=== PATIENT | female | born 1995 | race Caucasian/White ===

== ENCOUNTER 2019-02-05 13:29 | Inpatient (IN) | payer OTHER ==
[~2019-02-05] VITALS: Ht 157.5 cm; Wt 83.2 kg
[2019-02-05 13:39] VITALS: Ht 157.5 cm; Wt 83.2 kg
[2019-02-05] MEDS ORDERED: LACTATED RINGER'S 1,000 ML IV SCH (13:40)
[2019-02-05] MEDS ORDERED: LIDOCAINE 1% (MPF) 30 ML INJ INJ PRN (14:00)
[2019-02-05] MEDS ORDERED: OXYTOCIN 30 UNITS/LR 500 ML IV SCH ×2 (14:00)
[2019-02-05] MEDS ORDERED: OXYTOCIN 30 UNITS/LR 500 ML IV PRN (14:00)
[2019-02-05] MEDS ORDERED: IBUPROFEN 600 MG TAB PO PRN (14:00)
[2019-02-05] MEDS ORDERED: MISOPROSTOL 200 MCG TAB PR PRN (14:00)
[2019-02-05] MEDS ORDERED: BUTORPHANOL 2 MG INJ IV PRN ×2 (14:00)
[2019-02-05] MEDS ORDERED: CARBOPROST 250 MCG INJ IM PRN (14:00)
[2019-02-05] MEDS ORDERED: METHYLERGONOVINE 0.2 MG INJ IM PRN (14:00)
[2019-02-05] MEDS ORDERED: LACTATED RINGER'S 500 ML IV SCH (16:30)
[2019-02-05] MEDS: LACTATED RINGER'S 1,000 ML IV PRN (20:38)
[2019-02-06] MEDS: LACTATED RINGER'S 1,000 ML IV PRN (04:36)
[2019-02-06] MEDS ORDERED: LACTATED RINGER'S 1,000 ML IV PRN (06:00)
--- NOTE | 2019-02-06 19:30 | PREOPHP ---
DATE OF ADMISSION: 02/05/2019 HISTORY OF PRESENT ILLNESS: This is a 23-year-old lady, 1, para 0, EDC 02/12/2019 at 39 week s , admitted to labor and delivery area for IV hydration and observation. Her GONZALES on admissi on was 6. She had care at Dr. Ocampo's office and the care was uneventful. PAST PERSONAL HISTORY: No history of diabetes, TB, asthma. ALLERGIES: NO ALLERGIES. SOCIAL HISTORY: The patient does not smoke. She does not drink. MEDICATIONS: She does not take any drugs except her: 1. Iron. 2. Vitamins. GYNECOLOGIC HISTORY: She had menarche at the age of 12, every 28 days interval, 3 to 4 days duration and moderate in amount. FAMILY HISTORY: Noncontributory. OBSTETRICAL HISTORY: She is 1. REVIEW OF SYSTEMS: CARDIOVASCULAR: No chest pains. RESPIRATORY: No cough. GASTROINTESTINAL: No diarrhea, no vomiting. GENITOURINARY: No dysuria. PHYSICAL EXAMINATION: GENERAL: Reveals a conscious, coherent lady and in no acute distress. VITAL SIGNS: Her blood pressure 120/70, pulse rate 80 per minute, respirations 16 per minute. BREASTS, HEART AND LUNGS: Within normal limits. ABDOMEN: Soft. Fundic height 37 cm. heart tones 140 per minute. PELVIC: Revealed the cervix to be closed, station floating in cephalic presentation with the bag of water intact. EXTREMITIES: No pedal edema. ADMITTING DIAGNOSIS: A 39 weeks' intrauterine . The patient had an OB ultrasound. The GONZALES was 6, so the plans were explained to the patient as to go for IV hydration and repeat GONZALES the following day after admission. That was plan and the patient ag nia to it. Dictated By: JONATHAN ANGEL MD NS/NTS Conf#: [id number] DID#: [id number] CC: DARLINE OCAMPO MD;*EndCC*
--- NOTE | 2019-02-06 19:44 | PN ---
DATE: 02/06/2019 SUBJECTIVE: The patient feels good. No contractions. No pain. OBJECTIVE: VITAL SIGNS: She is afebrile. Vital signs stable. ABDOMEN: Soft. No tenderness noted. PELVIC: Revealed the cervix to be closed, station floating. EXTREMITIES: No calf tenderness. ASSESSMENT: A 39 weeks' intrauterine . PLAN: The patient will have a repeat ultrasound today and depending upon the ultrasound, the plans w ill be explained to the patient. Dictated By: JONATHAN ANGEL MD NS/NTS Conf#: [id number] DID#: [id number] CC: DARLINE OCAMPO MD;*EndCC*
--- NOTE | 2019-02-06 20:12 | DS ---
DATE OF ADMISSION: 02/05/2019 DATE OF DISCHARGE: 02/06/2019 HISTORY OF PRESENT ILLNESS: See dictated history and physical. PHYSICAL EXAMINATION: See dictated history and physical. ADMITTING DIAGNOSIS: A 39 weeks' intrauterine . HOSPITAL COURSE: The patient had an OB ultrasound and the GONZALES was 6, so she was given IV hydration a nd then the following day after admission, we have repeat GONZALES around noontime and the GONZALES was 8.5. T he cervix was still closed and the station was floating, so the patient was discharged home. She was advised to have at antepartum testing in 3 days. The plans were explained to the patient and the ri sks, benefits and alternatives were discussed with her. She was given instructions. She was apprise counselor ed. She was instructed. She was discharged home in good and stable. FINAL DIAGNOSES: 1. A 39 weeks' intrauterine . 2. Borderline oligohydramnios. Dictated By: JONATHAN YANG/ELIZABETH Conf#: [id number] DID#: [id number]
== END 2019-02-06 11:40 | disposition home or self-care (01) | DRG 833 ==
LOC: L-D 13:29 → EDSTATUS 02-12 13:26
PROVIDERS: ADMIT Obstetrics & Gynecology; ATTEND Obstetrics & Gynecology
DX: O41.03X0 Oligohydramnios, third trimester, not applicable or unspecified (principal); Z3A.39 39 weeks gestation of pregnancy
CPT/HCPCS: 76815; 76818; 85025; 85610; 85730; 86592; 86850; 86900; 86901; 87340; J7120

== ENCOUNTER 2019-02-09 10:54 | Inpatient (IN) | payer OTHER ==
[~2019-02-09] VITALS: Ht 157.5 cm; Wt 82.7 kg
[2019-02-09 11:21] VITALS: Ht 157.5 cm; Wt 82.7 kg
[2019-02-09] MEDS ORDERED: PNV11TAB PO (11:21)
[2019-02-09 11:22] VITALS: BP 107/60; PULSE 79; RESP 18
[2019-02-09] MEDS ORDERED: IBUPROFEN 600 MG TAB PO PRN (12:30)
[2019-02-09] MEDS ORDERED: METHYLERGONOVINE 0.2 MG INJ IM PRN (12:30)
[2019-02-09] MEDS ORDERED: OXYTOCIN 30 UNITS/LR 500 ML IV SCH ×2 (12:30)
[2019-02-09] MEDS ORDERED: MISOPROSTOL 50 MCG CAPSULE PO PRN (12:30)
[2019-02-09] MEDS ORDERED: BUTORPHANOL 2 MG INJ IV PRN (12:30)
[2019-02-09] MEDS ORDERED: OXYTOCIN 30 UNITS/LR 500 ML IV PRN (12:30)
[2019-02-09] MEDS ORDERED: MISOPROSTOL 200 MCG TAB PR PRN (12:30)
[2019-02-09] MEDS ORDERED: CARBOPROST 250 MCG INJ IM PRN (12:30)
[2019-02-09] MEDS ORDERED: OXYCODONE/ASPIRIN (4.88/325) TAB PO PRN (12:30)
[2019-02-09] MEDS ORDERED: LIDOCAINE 1% (MPF) 30 ML INJ INJ PRN (12:30)
[2019-02-09] MEDS ORDERED: MISOPROSTOL 50 MCG CAPSULE PO ONE (13:00)
[2019-02-09] MEDS: LACTATED RINGER'S 1,000 ML IV SCH ×2 (13:28→19:51)
[2019-02-09] MEDS: MISOPROSTOL 50 MCG CAPSULE PO SCH ×2 (17:56→22:00)
[2019-02-09] MEDS ORDERED: MISOPROSTOL 50 MCG CAPSULE PO SCH (18:00)
[2019-02-10] MEDS: MISOPROSTOL 50 MCG CAPSULE PO SCH ×2 (02:15→20:30)
[2019-02-10] MEDS: LACTATED RINGER'S 1,000 ML IV SCH ×4 (05:48→15:22)
[2019-02-10] MEDS ORDERED: OXYTOCIN 30 UNITS/LR 500 ML IV SCH (06:30)
[2019-02-10] MEDS ORDERED: FENTAnyl 2MCG/ML-ROPIV 0.2% 100 ML ONE (12:52)
--- NOTE | 2019-02-10 14:04 | PREAC ---
Date/Time of Note Date/Time of Note DATE: 02/10/19 TIME: 14:02 Anesthesia Eval and Record Evaluation Time Pre-Procedure Interview DATE: 02/10/19 TIME: 12:40 Age 23 Sex female NPO: 8 hrs Preoperative diagnosis iup @ 39 wks., , labor Planned procedure eva Past Medical History Past Medical History: Includes : : (1), Para: (0), Gestational age: (39 wks.) Surgery & Anesthesia Issues No known issue Meds Anticoagulation: Yes Beta Page within 24 hr: Yes Reason Beta Page not given: Pt. not on B-Page Reported Medications [id number] ( 19) 1 Each Tablet, 1 TAB PO DAILY, TAB 02/09/19 Current Medications Lactated Ringer's 1,000 ml @ 125 mls/hr Q8H IV Last administered on 02/10/19at 12:37; Admin Dose 125 MLS/HR; Start 02/09/19 at 12:27 Butorphanol Tartrate (Stadol) 2 mg Q2H PRN IV .PAIN SCALE 6-10; Start 02/09/19 at 12:30 Lidocaine (Xylocaine 1% (Mpf)) 30 ml ONCE PRN INJ .EPISIOTOMY; Start 02/09/19 at 12:30 Oxytocin/Lactated Ringer's 500 ml @ 500 mls/hr ONCE POST IV ; Start 02/09/19 at 12:30 Oxytocin/Lactated Ringer's 500 ml @ 125 mls/hr POST IV ; Start 02/09/19 at 12:30 Ibuprofen (Motrin) 600 mg ONCE PRN PO .PAIN 1-5; Start 02/09/19 at 12:30 Oxycodone/Aspirin (Percodan) 2 tab ONCE PRN PO .PAIN 6-10; Start 02/09/19 at 12:30 Oxytocin/Lactated Ringer's 500 ml @ 0 mls/hr ONCE PRN IV .VAGINAL BLEEDING; Start 02/09/19 at 12:30 Methylergonovine Maleate (Methergine) 0.2 mg ONCE PRN IM .VAGINAL BLEEDING; Start 02/09/19 at 12:30 Carboprost Tromethamine (Hemabate) 250 mcg ONCE PRN IM .VAGINAL BLEEDING; Start 02/09/19 at 12:30 Misoprostol (Cytotec) 1,000 mcg ONCE PRN [place] .VAGINAL BLEEDING; Start 02/09/19 at 12:30 Oxytocin/Lactated Ringer's 500 ml @ 0 mls/hr FOR INDUCTION IV Last administered on 02/10/19at 06:33; Admin Dose 2 MLS/HR; Start 02/10/19 at 06:30 Meds reviewed: Yes Allergies Coded Allergies: No Known Allergy (Unverified , 02/05/19) Allergies Reviewed: Yes Labs/Studies Labs Reviewed: Reviewed by anesthesiologist Result Diagram: 02/09/19 1320 test: Positive Studies: ECG (n/a), CXR (n/a) Pre-procedure Exam Last vitals Vital Signs Date Temp Pulse Resp B/P (MAP) Pulse Ox O2 O2 Flow FiO2 Time Delivery Rate 02/09/19 98.2 79 18 107/60 11:22 (76) Airway: Adequate mouth opening, Adequate thyromental dist Mallampati: Mallampati II Teeth: Normal Lung: Normal Heart: Normal ASA Physical Status ASA physical status: 2 Emergency: E Planned Anesthetic Neuraxial: Epidural Planned Pain Management Epidural, Parenteral pain med, Local by surgeon Pre-operative Attestations Prior to commencing anesthesia and surgery, the patient was re-evaluated, there was verification of: *The patient's identity *The results of appropriate recent lab work and preoperative vital signs *The above evaluation not changing prior to induction *Anesthetic plan, risk benefits, alternative and complications discussed with patient/family; questions answered; patient/family understands, accepts and wishes to proceed. Silk Worker used BHAVNA URIAS MD Feb 10, 2019 14:04
[2019-02-10] MEDS ORDERED: FENTAnyl 2MCG/ML-ROPIV 0.2% 100 ML BAG EPI SCH (14:30)
[2019-02-10] MEDS ORDERED: NALOXONE (0.4 MG/ML) INJ IV PRN (14:30)
[2019-02-10] MEDS ORDERED: ONDANSETRON 4 MG INJ IV PRN (14:30)
[2019-02-10] MEDS ORDERED: NALBUPHINE HCL (10 MG/1 ML) INJ IV PRN (14:30)
[2019-02-10] MEDS ORDERED: MINERAL OIL LIGHT 10 ML VIAL TOP ONE (20:00)
--- NOTE | 2019-02-10 20:57 | LDN ---
Date/Time of Note Date/Time of Note DATE: 02/10/19 TIME: 20:53 Delivery Summary of normal male with short 2nd stage of labor Weeks of Gestation 39w5d Placenta Delivered: Spontaneously Meconium: none Episiotomy: No Perineal laceration: 2 Laceration repair: 00ch gut Anesthesia type: Epidural Estimated blood loss: 120 Sponge & Needle done & correct: Yes All needle counts correct: Yes Any foreign bodies felt in the: No Delivery Information Sex Infant Sex: male Apgars 1 Minute: 8 5 Minute: 9 Suctioning Nose & mouth suctioned at luisa: Yes Delee suction performed: Yes Umbilical Cord Umbilical cord with: 3 Vessels Cord presentations: no nuchal cord Cord Blood was obtained: Yes Mother & Baby Disposition Disposition Mom & Baby to Maternity; Good: Yes Mom transferred to: Other Baby to NICU: No () LAUREN TRIANA MD Feb 10, 2019 20:57
--- NOTE | 2019-02-10 21:16 | HP ---
Date/Time of Note Date/Time of Note DATE: 02/10/19 TIME: 20:58 OB - History Hx of Present Free Text/Dictation 23 y.o primigravida here for IOL for oligohydramnios at 39w5d. Her visit was initiated and had unevenful course, Initial VE c/long /-3 GBS status neg EFW 3450gm GONZALES 5.7 admitted for IOL by using cytotec Chief Complaint: IOL Estimated Due Date: Feb 12, 2019 : 1 Para: 0 Spontaneous : 0 Therapeutic : 0 Care: Good Care Ultrasounds: Normal mid trimester US Obstetrical Complications: None Medical Complications: None, Musculoskeletal Past Family/Social History * Past Medical, Surgical, Family and Obstetric Histories reviewed from chart. Blood Type: B+ Rubella: immune RPR/VDRL: Negative GBS Status: Negative HBsAG: Negative OB Admission Exam Vital Signs Vital Signs Vital Signs Date Temp Pulse Resp B/P (MAP) Pulse Ox O2 O2 Flow FiO2 Time Delivery Rate 02/09/19 98.2 79 18 107/60 11:22 (76) Physical Exam HEENT: WNL Heart: Rhythm Normal Lungs: Clear, Equal Abdomen: WNL Extremities: Normal Reflexes: Normal Cervical Dilatation: None Effacement: 0% Station: -3 Membranes: Intact Amniotic Fluid: Unevaluable Heart Rate: 120's Accelerations: Accelerations Present Decelerations: No Decelerations Varibility: Moderate Contractions on Admission: >10 Minutes Apart Intensity: Mild Last 72 hours Lab Results CBC & BMP 02/09/19 13:20 OB Assessment/Plan Reason for admission: induction of labor Other Assessment: IUP 39w5d oligohydramnios Plan: Induction Induction Method: per Misoprostol Protocol LAUREN TRIANA MD Feb 10, 2019 21:13
[2019-02-10 22:00] VITALS: BP 116/76; PULSE 80; RESP 20
[2019-02-10] MEDS ORDERED: CARBOPROST 250 MCG INJ IM PRN (22:30)
[2019-02-10] MEDS ORDERED: BENZOCAINE 20% 56 ML SPRAY TOP PRN (22:30)
[2019-02-10] MEDS ORDERED: ZOLPIDEM 5 MG TAB PO PRN (22:30)
[2019-02-10] MEDS ORDERED: OXYTOCIN 30 UNITS/LR 500 ML IV PRN (22:30)
[2019-02-10] MEDS ORDERED: LANOLIN HPA 1 PKT TOP PRN (22:30)
[2019-02-10] MEDS ORDERED: METHYLERGONOVINE 0.2 MG INJ IM PRN (22:30)
[2019-02-10] MEDS ORDERED: OXYCODONE/ASPIRIN (4.88/325) TAB PO PRN (22:30)
[2019-02-10] MEDS ORDERED: MISOPROSTOL 200 MCG TAB PR PRN (22:30)
[2019-02-10] MEDS ORDERED: WITCH HAZEL/GLYCERIN PAD PR PRN (22:30)
[2019-02-10 23:00] VITALS: BP 110/75; PULSE 75; RESP 18
[2019-02-10] MEDS: IBUPROFEN 600 MG TAB PO SCH (23:13)
[2019-02-11] VITALS: BP 112/71; RESP 19
[2019-02-11] MEDS: LACTATED RINGER'S 1,000 ML IV SCH ×3 (01:43→17:30)
[2019-02-11 04:00] VITALS: BP 99/68; PULSE 83; RESP 19
[2019-02-11] MEDS: IBUPROFEN 600 MG TAB PO SCH ×4 (05:55→23:38)
--- NOTE | 2019-02-11 06:00 | PAC ---
Date/Time of Note Date/Time of Note DATE: 02/11/19 TIME: 06:00 Post-Anesthesia Notes Post-Anesthesia Note Last documented vital signs Vital Signs Date Temp Pulse Resp B/P (MAP) Pulse Ox O2 O2 Flow FiO2 Time Delivery Rate 02/11/19 98.1 83 19 99/68 (78) Room Air 04:00 Activity: WNL Respiratory function: WNL Cardiovascular function: WNL Mental status: Baseline Pain reasonably controlled: Yes Hydration appropriate: Yes Nausea/Vomiting absent: Yes BHAVNA URIAS MD Feb 11, 2019 06:00
[2019-02-11 08:00] VITALS: BP 97/54; PULSE 74; RESP 18
[2019-02-11] MEDS: SENNA/DOCUSATE NA (8.6MG/50MG) TAB PO SCH ×2 (09:28→21:36)
--- NOTE | 2019-02-11 09:34 | PREOPHP ---
DATE OF ADMISSION: 02/09/2019 HISTORY OF PRESENT ILLNESS: This is a 23-year-old lady, 1, her EDC 02/12/2019 at 39 and 4/7 weeks, admitted to labor and delivery area for induction. This patient is known to have borderline o ligohydramnios. She was in this hospital a few days ago. GONZALES on admission at that time was 5.5+ and the following day after hydration it became 8+. She came on 02/09/2019 for another repeat GONZALES and t he GONZALES was 5.2, so she was admitted for induction. PAST PERSONAL HISTORY: No history of TB, asthma. ALLERGIES: NO ALLERGIES. SOCIAL HISTORY: The patient does not smoke. She does not drink. She does not take any drugs except her iron and vitamins. GYNECOLOGIC HISTORY: She had menarche at the age of 12, every 28 days interval, 3 to 4 days duration , and moderate in amount. FAMILY HISTORY: Noncontributory. REVIEW OF SYSTEMS: CARDIOVASCULAR: No chest pains. RESPIRATORY: No cough. GASTROINTESTINAL: No diarrhea, no vomiting. GENITOURINARY: No dysuria. PHYSICAL EXAMINATION: GENERAL: Reveals a conscious, coherent lady, in no acute distress. VITAL SIGNS: Her blood pressure 120/80, pulse rate 80 per minute, respirations 16 per minute. BREASTS, HEART AND LUNGS: Within normal limits. ABDOMEN: Soft. No organomegaly. Fundic height 37 cm. heart tones 140 per minute. PELVIC: On admission done by nurse revealed the cervix to be closed and station -2 in cephalic prese ntation with the bag of water intact. EXTREMITIES: No pedal edema. ADMITTING DIAGNOSIS: A 39 and 4/7 weeks intrauterine in early labor. The plans of deliver y were explained to the patient as to go for vaginal delivery. The risks, benefits, and alternatives to vaginal delivery and was explained to the patient and to her partner and both understoo d everything totally. The risks of explained both of them wanted to go for vaginal deliver y, so the patient was started on Cytotec. The patient received 4 doses of Cytotec after the 4th dose , pelvic exam revealed the cervix to be 1 to 2 cm dilated and so she was started on Pitocin augmentat ion. At 2:20 p.m. I did evaluate the patient. She was 6 cm dilated and a scalp electrode and IUPC was inserted. She had a spontaneous ruptured bag of water about 1:30 p.m. 02/10/2019 and then t he estimated weight by ultrasound is 7 pounds, 3450 grams. So she was planned to be continued on Pitocin augmentation. She received labor epidural at 2:45 p.m. and the epidural did not seem to b e working. Also when the patient was 8 to 9 cm dilated I endorsed the patient to Dr. Campbell to deliver and the history was given to her. Dictated By: JONATHAN ANGEL MD NS/NTS Conf#: [id number] DID#: [id number] CC: DARLINE OCAMPO MD; JONATHAN ANGEL MD;*[facility]*
[2019-02-11 12:00] VITALS: BP 92/60; PULSE 58; RESP 19
[2019-02-11] MEDS ORDERED: MAGNESIUM HYDROXIDE 30ML CUP PO ONE (13:00)
[2019-02-11] MEDS ORDERED: BISACODYL 10 MG SUPP PR ONE (13:00)
[2019-02-11 16:00] VITALS: BP 105/55; PULSE 80; RESP 19
[2019-02-11 19:50] VITALS: BP 108/70; PULSE 87; RESP 17
--- NOTE | 2019-02-11 20:57 | PN ---
Date/Time of Note Date/Time of Note DATE: 02/11/19 TIME: 20:55 Assessment/Plan VTE Prophylaxis Risk score (from Ns)>0 risk: 1 SCD applied (from Ns): No SCD contraindicated: low risk/ambulating Pharmacological prophylaxis: NA/contraindicated Pharm contraindication: low risk/ambulating Lines/Catheters IV C[facility]ter Type ([facility] Peripheral IV Assessment/Plan Assessment/Plan POST DAY 1 CHRONIC IRON DEFICIENCY ANEMIA HOME TOMORROW RETURN TO CLINIC IN 2 WEEKS CONTINUE WITH VITAMINS OD AND FERROUS SULFATE PO TID DIET ADVISED COUNSELED INSTRUCTED CALL OFFICE IF THERE IS ANY PROBLEMS OR CONCERN Result Diagram: 02/11/19 0651 Results 24hrs Laboratory Tests Test 02/11/19 06:51 White Blood Count 17.9 #H Red Blood Count 3.37 #L Hemoglobin 10.3 #L Hematocrit 29.4 #L Mean Corpuscular Volume 87.2 Mean Corpuscular Hemoglobin 30.6 Mean Corpuscular Hemoglobin Concent 35.0 Red Cell Distribution Width 13.2 Platelet Count 143 Mean Platelet Volume 12.4 H Immature Granulocytes % 0.600 H Neutrophils % 82.5 H Lymphocytes % 11.3 L Monocytes % 5.3 Eosinophils % 0.1 Basophils % 0.2 Nucleated Red Blood Cells % 0.0 Immature Granulocytes # 0.110 H Neutrophils # 14.8 H Lymphocytes # 2.0 Monocytes # 1.0 H Eosinophils # 0.0 Basophils # 0.0 Nucleated Red Blood Cells # 0.0 Subjective 24 Hr Interval Summary Free Text/Dictation FEELS GOOD, GOOD URINE OUTPUT, GOOD BOWEL MOVEMENT Exam/Review of Systems Exam Vitals Vital Signs Date Temp Pulse Resp B/P (MAP) Pulse Ox O2 O2 Flow FiO2 Time Delivery Rate 02/11/19 98.3 87 17 108/70 Room Air 19:50 (83) Intake and Output 02/10/19 02/10/19 02/11/19 1515:00 23:00 07:00 IntakeIntake Total 1000 ml 1250 ml 990 ml OutputOutput Total 300 ml 1318 ml 1100 ml BalanceBalance 700 ml -68 ml -110 ml Exam VITAL SIGNS STABLE: YES AFEBRILE: YES BREAST NOT ENGORGED, NON-TENDER, NO APPRECIABLE MASS: YES LUNGS CLEAR, NO RALES, WHEEZES, RHONCHI: YES SINUS RHYTHM WITHOUT MURMUR: YES ABDOMEN: NON-TENDER FUNDUS: BELOW UMBILICUS BOWEL SOUNDS: PRESENT UTERUS: FIRM PERINEAL TEAR HEALING WELL LOCHIA: LIGHT DEEP TENDON REFLEXES: 0 EXTREMITIES: NO CALF TENDERNESS EDEMA SCALE: NONE Results Results 24hrs Laboratory Tests Test 02/11/19 06:51 White Blood Count 17.9 #H Red Blood Count 3.37 #L Hemoglobin 10.3 #L Hematocrit 29.4 #L Mean Corpuscular Volume 87.2 Mean Corpuscular Hemoglobin 30.6 Mean Corpuscular Hemoglobin Concent 35.0 Red Cell Distribution Width 13.2 Platelet Count 143 Mean Platelet Volume 12.4 H Immature Granulocytes % 0.600 H Neutrophils % 82.5 H Lymphocytes % 11.3 L Monocytes % 5.3 Eosinophils % 0.1 Basophils % 0.2 Nucleated Red Blood Cells % 0.0 Immature Granulocytes # 0.110 H Neutrophils # 14.8 H Lymphocytes # 2.0 Monocytes # 1.0 H Eosinophils # 0.0 Basophils # 0.0 Nucleated Red Blood Cells # 0.0 Medications Medication Current Medications Ibuprofen (Motrin) 600 mg Q6 PO Last administered on 02/11/19at 17:23; Admin Dose 600 MG; Start 02/11/19 at 00:00 Oxycodone/Aspirin (Percodan) 1 tab Q3H PRN PO .PAIN 1-5; Start 02/10/19 at 22:30 Oxycodone/Aspirin (Percodan) 2 tab Q3H PRN PO .PAIN 6-10; Start 02/10/19 at 22:30 Zolpidem Tartrate (Ambien) 5 mg QHS PRN PO .INSOMNIA; Start 02/10/19 at 22:30 Senna/Docusate Sodium (Senokot-S) 1 tab BID PO Last administered on 02/11/19at 09:28; Admin Dose 1 TAB; Start 02/11/19 at 09:00 Witch Bárbara/ Glycerin (Tucks Pads) 1 pad BEDSIDE MEDICATION PRN AL .HEMORRHOID/EPISIOTOMY PAIN Last administered on 02/10/19at 23:12; Admin Dose 1 PAD; Start 02/10/19 at 22:30 Benzocaine (Dermoplast [place]) 1 spray BEDSIDE MEDICATION PRN TOP .HEMMORHOID/EPISIOTOMY PAIN Last administered on 02/10/19at 23:12; Admin Dose 1 SPRAY; Start 02/10/19 at 22:30 Lanolin (Lanolin Hpa) 1 applic BEDSIDE MEDICATION PRN TOP .NIPPLES Last administered on 02/10/19at 23:15; Admin Dose 1 APPLIC; Start 02/10/19 at 22:30 Diphtheria/ Tetanus/Acell Pertussis (Adacel) 0.5 ml ONCE ONCE IM* ; Start 02/12/19 at 09:00; Stop 02/12/19 at 09:01 Oxytocin/Lactated Ringer's 500 ml @ 0 mls/hr ONCE PRN IV .VAGINAL BLEEDING; Start 02/10/19 at 22:30 Methylergonovine Maleate (Methergine) 0.2 mg ONCE PRN IM .VAGINAL BLEEDING; Start 02/10/19 at 22:30 Carboprost Tromethamine (Hemabate) 250 mcg ONCE PRN IM .VAGINAL BLEEDING; Start 02/10/19 at 22:30 Misoprostol (Cytotec) 1,000 mcg ONCE PRN [place] .VAGINAL BLEEDING; Start 02/10/19 at 22:30 JONATHAN ANGEL MD Feb 11, 2019 20:57
[2019-02-11] MEDS: OXYCODONE/ASPIRIN (4.88/325) TAB PO PRN (21:42)
[2019-02-12 03:29] VITALS: BP 96/55; RESP 17
[2019-02-12] MEDS: OXYCODONE/ASPIRIN (4.88/325) TAB PO PRN ×2 (04:31→10:22)
[2019-02-12] MEDS: IBUPROFEN 600 MG TAB PO SCH ×2 (05:38→12:04)
[2019-02-12 08:00] VITALS: BP 106/65; PULSE 77; RESP 18
[2019-02-12] MEDS ORDERED: DIPHTH/TET/ACEL PERTUSS (ADULT) 0.5 ML VIAL IM* ONE (09:00)
[2019-02-12] MEDS: SENNA/DOCUSATE NA (8.6MG/50MG) TAB PO SCH (09:40)
--- NOTE | 2019-02-13 16:11 | DELSUM ---
Delivery Summary A-C Datetime Report Generated by CPN: 02/13/2019 16:11 DELIVERY PERSONNEL Pulp Press Tender: Mann, Clarita MATERNAL INFORMATION Delivery Anesthesia: Epidural Medications in Delivery: 30 UNITS PITOCIN Delivery QBL (ml): 122 Placenta Cultured: No Maternal Complications: None LABOR SUMMARY EDC: 02/12/2019 00:00 No. Babies in Womb: 1 Attempted: No Labor Anesthesia: Epidural LABOR INFORMATION Reason for Induction: Oligohydramnios Onset of Labor: 02/09/2019 13:02 Complete Dilatation: 02/10/2019 19:57 Cervical Ripening Agents: Cytotec @ 50 mcg Group B Beta Strep: Negative Antibiotics # of Doses: 0 Steroids Given: None Reason Steroids Not Administered: Not Applicable MEMBRANES Membranes Rupture Method: Spontaneous Rupture of Membranes: 02/10/2019 13:05 Length of Rupture (hr): 7.15 Amniotic Fluid Color: Clear Amniotic Fluid Amount: Small Amniotic Fluid Odor: Normal STAGES OF LABOR Stage 1 hr: 30 Stage 1 min: 55 Stage 2 hr: 0 Stage 2 min: 17 Stage 3 hr: 0 Stage 3 min: 3 Total Time in Labor hr: 31 Total Time in Labor min: 15 VAGINAL DELIVERY Episiotomy: None Laceration Extension: Second Degree Laceration Type: Perineal Laceration Repair: Yes Initial Vag Sponge Count: 10 Final Vag Sponge Count: 10 Initial Vag Sharps Count: 2 Final Vag Sharps Count: 2 Sponge Count Correct: Yes; Vaginal Sweep Performed Sharps Count Correct: Yes BABY A INFORMATION Delivery Date/Time: 02/10/2019 20:14 Method of Delivery: Vaginal Born in Route : No : N/A Forceps: N/A Vacuum Extraction: N/A Shoulder Dystocia : N/A SHOULDER DYSTOCIA BABY A Infant Delivery Date/Time: 02/10/2019 20:14 PRESENTATION/POSITION BABY A Presentation: Cephalic Cephalic Presentation: Vertex Breech Presentation: N/A PLACENTA INFORMATION BABY A Placenta Delivery Time : 02/10/2019 20:17 Placenta Method of Delivery: Expressed Placenta Status: Delivered SCORES BABY A Heart Rate 1 min: >100 bpm Resp Effort 1 min: Good Cry Reflex Irritability 1 min: Cough/Sneeze/Pulls Away Muscle Tone 1 min: Active Motion Color 1 min: Body [place], Extremit Blue Resuscitation Effort 1 min: Tactile Stimulation SCORE 1 MIN: 9 Heart Rate 5 min: >100 bpm Resp Effort 5 min: Good Cry Reflex Irritability 5 min: Cough/Sneeze/Pulls Away Muscle Tone 5 min: Active Motion Color 5 min: Body [place], Extremit Blue Resuscitation Effort 5 min: Tactile Stimulation SCORE 5 MIN: 9 INFANT INFORMATION BABY A Gestational Age at Delivery: 39.5 Gestational Status: Full Term- 39- 40.6 Weeks Outcome : Liveborn, with signs of life Infant Condition : Stable Infant Sex: Male IDENTIFICATION/MEDS BABY A ID Band Number: [id number] ID Band Location: Right Leg; Left Arm Sensor Applied: Yes Sensor Number: [id number] Sensor Location : Cord Clamp Vitamin K Given : Not Given Erythromycin Given: Not Given WEIGHT/LENGTH BABY A Birthweight (gm): 3150 Infant Weight (lb): 6 Weight (oz): 15 Infant Length (in): 19.50 Infant Length (cm): 49.53 CORD INFORMATION BABY A No. Cord Vessels: 3 Nuchal Cord : N/A Cord Blood Taken: Yes Suction: Mouth; Nose ASSESSMENT BABY A Complications: Multiple Late Decels; Multiple Variable Decels; Oligohydramnios Physical Findings at Delivery: Within Normal Limits Infant Respirations: Appears Normal Calculating Machine Mechanic/ALS Called : No Care By: Jaison LORD Transferred To: Remains with Mother
== END 2019-02-12 15:20 | disposition home or self-care (01) | DRG 807 ==
LOC: OBT 10:54 → L-D 10:55 → OBT 12:23 → PP1 02-10 22:01
PROVIDERS: ADMIT Obstetrics & Gynecology; ATTEND Obstetrics & Gynecology
PROC: 10E0XZZ Delivery of Products of Conception, External Approach (ICD-10-PCS; principal; 2019-02-10)
PROC: 0HQ9XZZ Repair Perineum Skin, External Approach (ICD-10-PCS; 2019-02-10)
PROC: 3E033VJ Introduction of Other Hormone into Peripheral Vein, Percutaneous Approach (ICD-10-PCS; 2019-02-10)
PROC: 3E0P7VZ Introduction of Hormone into Female Reproductive, Via Natural or Artificial Opening (ICD-10-PCS; 2019-02-10)
DX: O41.03X0 Oligohydramnios, third trimester, not applicable or unspecified (principal); Z37.0 Single live birth; Z3A.39 39 weeks gestation of pregnancy; O70.9 Perineal laceration during delivery, unspecified; O99.013 Anemia complicating pregnancy, third trimester
CPT/HCPCS: 62322; 76815; 76818; 85025; 85610; 85730; 86592; 86850; 86900; 86901; 99464; G0463; J2590; J3010; J7120

== ENCOUNTER 2019-02-14 12:59 | Emergency (ER) | payer OTHER ==
[~2019-02-14] VITALS: Ht 160 cm; Wt 79.1 kg
[~2019-02-14 12:59] MED LIST: PNV11TAB PO
[2019-02-14 13:14] VITALS: Ht 160 cm; Wt 79.1 kg
[2019-02-14] MEDS ORDERED: ACETAMINOPHEN 500 MG TAB PO STA (13:38)
[2019-02-14] MEDS ORDERED: LIDOCAINE 1% (MPF) 5 ML VIAL IM ONE (14:00)
[2019-02-14] MEDS ORDERED: CEFTRIAXONE 1 GM INJ IM ONE (14:00)
[2019-02-14] MEDS ORDERED: CLIN300C10 PO (14:23)
[2019-02-14] MEDS ORDERED: ACET325T33 PO (14:23)
--- NOTE | 2019-02-14 15:00 | ERD ---
ER Documentation Chief Complaint Chief Complaint abscess tailbone HPI History of Present Illness: 23-year-old female who denies a past medical history coming in today with complaint of abscess to her tailbone that she noticed approximately 5 days ago. Patient reports giving on 02/12/2029. Patient reports noting a draining abscess to buttock crease yesterday. Patient denies any other associated symptoms. At home pharmacological/nonpharmacological treatment for symptoms: Denies Denies social concerns; Denies recent foreign travel ROS All systems reviewed and are negative except as per history of present illness. Medications Home Meds Active Scripts Acetaminophen* (Tylenol*) 325 Mg Tablet, 2 TAB PO Q6 PRN for PAIN AND OR ELEVATED TEMP, #20 TAB Prov:MICHEAL STORY NP 02/14/19 Clindamycin Hcl* (Clindamycin Hcl*) 300 Mg Capsule, 300 MG PO TID for ABSCESS for 10 Days, CAP Prov:MICHEAL STORY V PATIENT CENTERED CARE SPECIALIST 02/14/19 Reported Medications [id number] ( 19) 1 Each Tablet, 1 TAB PO DAILY, TAB 02/09/19 Allergies Allergies: Coded Allergies: No Known Allergy (Unverified , 02/05/19) PMhx/Soc Medical and Surgical Hx: pt denies Medical Hx, pt denies Surgical Hx Hx Alcohol Use: No Hx Substance Use: No Hx Tobacco Use: No Smoking Status: Never smoker FmHx Family History: diabetes Physical Exam Vitals Vital Signs Date Temp Pulse Resp B/P (MAP) Pulse Ox O2 O2 Flow FiO2 Time Delivery Rate 02/14/19 99.8 104 18 127/92 96 13:14 (104) Physical Exam Const: No acute distress, afebrile Head: Atraumatic Eyes: Normal Conjunctiva ENT: Normal External Ears, Nose and Mouth. Neck: Full range of motion. No meningismus. Resp: Clear to auscultation bilaterally Cardio: Regular rate and rhythm, no murmurs Abd: Soft, non tender, non distended. No guarding, no masses, no rigidity Skin: No petechiae or rashes; abscess noted to gluteal fold, 1.5 cm of induration, no fluctuance, no warmth, no erythema, mild purulent drainage noted Back: No midline or flank tenderness Ext: No cyanosis, or edema Neur: Awake and alert x3, speaking in clear sentences, no focal deficits or facial asymmetry Psych: Normal Mood and Affect Results 24 hrs Current Medications Medications Dose Sig/Catracho Start Time Status Last (Trade) Ordered Route PRN Stop Time Admin Dose Reason Admin 1,000 mg ONCE STAT 02/14/19 DC 02/14/19 Acetaminophen PO 13:38 02/14/19 13:57 (Tylenol 13:41 Tab) Ceftriaxone 1 gm ONCE ONCE 02/14/19 DC 02/14/19 Sodium IM 14:00 02/14/19 13:57 (Rocephin) 14:01 Lidocaine 2.1 ml ONCE ONCE 02/14/19 DC 02/14/19 (Xylocaine IM 14:00 02/14/19 13:57 1% (Mpf)) 14:01 Procedures/MDM ED COURSE: ED course includes a thorough examination and history. The patient was stable throughout ED course. I kept the patient and/or family informed of laboratory and diagnostic imaging results throughout the ED course. LABS: none MEDICATIONS GIVEN IN ER: Ceftriaxone, cephalexin Patient tolerated medication well with no adverse reactions. Patient reported improvement in pain. DIAGNOSTIC IMAGING: none PROCEDURES: None. MEDICAL DECISION MAKING: Low suspicion for life-threatening medical emergency. Low suspicion for infectious process that requires hospitalization. Otherwise healthy patient presenting with constellation of symptoms likely representing uncomplicated abscess as characterized by history, physical exam findings. Patient reassessment @ 1400: Patient medicated as ordered. Patient hemodynamically stable. No respiratory distress, otherwise relatively well appearing and nontoxic. Disposition given. Patient educated on diagnoses, prescriptions, follow-up care, return precautions. Strict return precautions given for worsening condition; questions answered discharge. Patient verbalizes understanding of discharge instructions. PRESCRIPTIONS FOR HOME: Clindamycin,, acetaminophen; Clinda chosen as antibiotic of choice due to patient currently breast-feeding and Keflex and Bactrim alternative would not be appropriate for breast-feeding DISPOSITION: DISCHARGE At this time, patient is stable for discharge and outpatient management. I have instructed the patient to follow-up with his/her primary care physician in 1-2 days. I have discussed with the patient the possibility of needing to see a specialist for further workup and imaging studies if symptoms persist. I have instructed the patient to promptly return to the ER for any new or worsening symptoms including increased pain, fever, nausea, vomiting, weakness or LOC. The patient and/or family expressed understanding of and agreement with this plan. All questions were answered. Home care instructions were provided. DISCLAIMER: Inadvertent spelling and grammatical errors are likely due to EHR/dictation software use and do not reflect on the overall quality of patient care. Also, please note that the electronic time recorded on this note does not necessarily reflect the actual time of the patient encounter. Departure Diagnosis: Primary Impression: Abscess Condition: Stable Patient Instructions: Abscess, Antiobiotic Treatment Only Referrals: [facility] YOU HAVE RECEIVED A MEDICAL SCREENING EXAM AND THE RESULTS INDICATE THAT YOU DO NOT HAVE A CONDITION THAT REQUIRES URGENT TREATMENT IN THE EMERGENCY DEPARTMENT. FURTHER EVALUATION AND TREATMENT OF YOUR CONDITION CAN WAIT UNTIL YOU ARE SEEN IN YOUR DOCTORS OFFICE WITHIN THE NEXT 1-2 DAYS. IT IS YOUR RESPONSIBILITY TO MAKE AN APPOINTMENT FOR FOLOW-UP CARE. IF YOU HAVE A PRIMARY DOCTOR --you should call your primary doctor and schedule an appointment IF YOU DO NOT HAVE A PRIMARY DOCTOR YOU CAN CALL OUR PHYSICIAN REFERRAL HOTLINE AT IF YOU CAN NOT AFFORD TO SEE A PHYSICIAN YOU CAN CHOSE FROM THE FOLLOWING [facility] [address] [facility]. [facility] [address] [facility] [facility] [address] [facility] [facility] [address] [facility] [facility] [address] [facility] [facility] [address] [facility]. [facility] YOU HAVE RECEIVED A MEDICAL SCREENING EXAM AND THE RESULTS INDICATE THAT YOU DO NOT HAVE A CONDITION THAT REQUIRES URGENT TREATMENT IN THE EMERGENCY DEPARTMENT. FURTHER EVALUATION AND TREATMENT OF YOUR CONDITION CAN WAIT UNTIL YOU ARE SEEN IN YOUR DOCTORS OFFICE WITHIN THE NEXT 1-2 DAYS. IT IS YOUR RESPONSIBILITY TO MAKE AN APPOINTMENT FOR FOLOW-UP CARE. IF YOU HAVE A PRIMARY DOCTOR --you should call your primary doctor and schedule and appointment IF YOU DO NOT HAVE A PRIMARY DOCTOR YOU CAN CALL OUR PHYSICIAN REFERRAL HOTLINE AT . IF YOU CAN NOT AFFORD TO SEE A PHYSICIAN YOU CAN CHOSE FROM THE FOLLOWING [facility]: [facility] [address] [place] [address] [facility] [address] [place] [address] [facility] [address] [place] [address] Additional Instructions: Thank you very much for allowing us to participate in your care. Your health and safety is our top priority at [facility]. It is important to read all discharge instructions and education provided in your discharge packet. Call your primary care doctor TOMORROW for an appointment during the next 2-4 days and bring all the information and medications prescribed. Have prescriptions filled and follow precisely the directions on the label. -Clindamycin is an antibiotic; take this medication every day as listed on your prescription. You must complete the entire course of treatment that is listed on your prescription this is very important because it takes a certain number of days to kill the bacteria that is causing the infection. -Acetaminophen as a medication for pain and/or fever. Take this medication as needed for mild to moderate pain. This medication will not cause drowsiness. If the symptoms get worse and your provider is unavailable, return to the Emergency Department immediately. MICHEAL STORY NP Feb 14, 2019 15:00
== END 2019-02-14 15:42 | disposition home or self-care (01) ==
LOC: FTE 12:59
DX: L05.01 Pilonidal cyst with abscess (principal)
CPT/HCPCS: 96372; J0696; Z7502; Z7610